=== PATIENT | male | born 1935 | race Caucasian/White ===

== ENCOUNTER 2018-09-06 09:20 | Inpatient (IN) | payer MEDICARE, OTHER ==
[~2018-09-06] VITALS: Ht 172.7 cm; Wt 75.1 kg
[2018-09-06] MEDS ORDERED: ENOXAPARIN 80 MG/0.8 ML SYG SC STA (09:32)
--- NOTE | 2018-09-06 09:52 | ERD ---
ER Documentation Chief Complaint Chief Complaint CP TODAY HPI This is an 83-year-old male who developed chest pain at 5:00 in the morning today with heart racing. He has no history of atrial fibrillation. His pain is substernal without radiation he feels just mild shortness of breath. No dizziness no syncope no diaphoresis. The patient takes metoprolol for hypertension. Currently his pain is minimal ROS All systems reviewed and are negative except as per history of present illness. Medications Home Meds Reported Medications Mag Hydrox/Al Hydrox/Simeth (Mi Acid Liquid) 355 Ml Oral.susp, 5 ML PO TID 09/06/18 Rotigotine (NEUPRO) 1 Each Patch.td24, 1 EACH TD DAILY 2MG/24HR 09/06/18 Famotidine* (Famotidine*) 20 Mg Tablet, 20 MG PO BID, #60 TAB 09/06/18 Trazodone Hcl* (Trazodone Hcl*) 50 Mg Tablet, 50 MG PO QHS, #30 TAB 09/06/18 Clopidogrel Bisulfate (Clopidogrel) 75 Mg Tablet, 75 MG PO DAILY, #30 TAB 09/06/18 Polyethylene Glycol* (Miralax*) 17 Gm Powd.pack, 17 GM PO DAILY, #30 PACKET 09/06/18 Metoprolol Succinate* (Toprol XL*) 25 Mg Tab.sr.24h, 25 MG PO DAILY, #30 TAB 09/06/18 Baclofen* (Baclofen*) 10 Mg Tablet, 10 MG PO DAILY, TAB 09/06/18 Tamsulosin Hcl* (Flomax*) 0.4 Mg Cap.er.24h, 0.4 MG PO DAILY, CAP 09/06/18 Carbidopa/Levodopa (Carbidopa-Levodopa 25-100 Tab) 1 Each Tablet, 1 EACH PO BID, TAB 09/06/18 Aspirin (Low Dose Aspirin) 81 Mg Tablet.dr, 81 MG PO DAILY, #30 TAB 09/06/18 Linaclotide (LINZESS) 145 Mcg Capsule, 145 MCG PO DAILY, #30 CAP 09/06/18 Atorvastatin* (Atorvastatin*) 40 Mg Tablet, 40 MG PO QHS, #30 TAB 09/06/18 Esomeprazole Mag Trihydrate (Nexium) 40 Mg Capsule.dr, 40 MG PO DAILY, #30 CAP 09/06/18 Allergies Allergies: Coded Allergies: No Known Allergy (Unverified , 4/21/19) PMhx/Soc Hx Alcohol Use: No Hx Substance Use: No Hx Tobacco Use: No FmHx Family History: No coronary disease Physical Exam Vitals Vital Signs Date Temp Pulse Resp B/P (MAP) Pulse Ox O2 O2 Flow FiO2 Time Delivery Rate 09/06/18 98.6 76 18 124/69 99 09:23 (87) Physical Exam Const: Well-developed, well-nourished Head: Atraumatic, normocephalic Eyes: Normal Conjunctiva, PERRLA, EOMI, normal sclera, no nystagmus ENT: Normal External Ears, Nose and Mouth, moist mucus membranes. Neck: Full range of motion. No meningismus, no lymphadenopathy. Resp: Clear to auscultation bilaterally, no wheezing, rhonchi, rales Cardio: Irregular rate and rhythm no murmurs, S1 S2 present] Abd: Soft, non tender x 4, non distended. Normal bowel sounds, no guarding or rebound, no pulsitile abdominal masses or bruits Skin: No petechiae or rashes, no ecchymosis , no maculopapular rash Back: No midline or flank tenderness Ext: No cyanosis, or edema, FROM x 4, normal inspection, neurovascularly intact x 4 Neur: Awake and alert, STR 5/5 x 4, sensation intact x 4, no focal findings, cerebellum intact Psych: Normal Mood and Affect Result Diagram: 09/06/1894009/06/18940 Results 24 hrs Laboratory Tests Test 09/06/18 09:41 White Blood Count 7.5 10^3/ul Red Blood Count 5.38 10^6/ul Hemoglobin 16.7 g/dl Hematocrit 52.0 % Mean Corpuscular Volume 96.7 fl Mean Corpuscular Hemoglobin 31.0 pg Mean Corpuscular Hemoglobin Concent 32.1 g/dl Red Cell Distribution Width 12.8 % Platelet Count 173 10^3/UL Mean Platelet Volume 9.9 fl Immature Granulocytes % 0.400 % Neutrophils % 64.0 % Lymphocytes % 27.9 % Monocytes % 6.8 % Eosinophils % 0.8 % Basophils % 0.1 % Nucleated Red Blood Cells % 0.0 /100WBC Immature Granulocytes # 0.030 10^3/ul Neutrophils # 4.8 10^3/ul Lymphocytes # 2.1 10^3/ul Monocytes # 0.5 10^3/ul Eosinophils # 0.1 10^3/ul Basophils # 0.0 10^3/ul Nucleated Red Blood Cells # 0.0 10^3/ul Prothrombin Time 12.5 Sec Prothrombin Time Ratio 1.0 INR International Normalized Ratio 0.92 Activated Partial Thromboplast Time 26.6 Sec Sodium Level 141 mmol/L Potassium Level 4.4 mmol/L Chloride Level 101 mmol/L Carbon Dioxide Level 31 mmol/L Anion Gap 9 Blood Urea Nitrogen 21 mg/dl Creatinine 0.84 mg/dl Est Glomerular Filtrat Rate mL/min mL/min Glucose Level 108 mg/dl Calcium Level 9.5 mg/dl Total Bilirubin 1.7 mg/dl Direct Bilirubin 0.00 mg/dl Indirect Bilirubin 1.7 mg/dl Aspartate Amino Transf (AST/SGOT) 25 IU/L Alanine Aminotransferase (ALT/SGPT) 39 IU/L Alkaline Phosphatase 89 IU/L Troponin I < 0.012 ng/ml Total Protein 7.8 g/dl Albumin 4.5 g/dl Globulin 3.30 g/dl Albumin/Globulin Ratio 1.36 Current Medications Medications Dose Sig/Angel Start Time Status Last (Trade) Ordered Route PRN Stop Time Admin Dose Reason Admin Enoxaparin 70 mg ONCE STAT 09/06/18 DC 09/06/18 Sodium SC 09:32 09:47 (Lovenox) 09/06/18 09:35 Diltiazem 20 mg ONCE ONCE 09/06/18 DC 09/06/18 HCl IV 10:00 09:46 (Cardizem Iv) 09/06/18 10:01 Diltiazem 125 ml @ [id number] IV 09/06/18 HCl 10 mls/hr 10:00 Procedures/MDM EKG: Rate/Rhythm: Atrial fibrillation with rapid ventricular response, right bundle branch block QRS, ST, QT: NORMAL [place], QRS, QT] Impression: A. fib with RVR MR #: [id number] DOS: 09/06/18931 Ordering MD: MACY FUNEZ DO Location: E/R Room/Bed: PROCEDURE: XR Chest. CLINICAL INDICATION: Chest pain TECHNIQUE: AP portable upright chest was obtained COMPARISON: None. FINDINGS: Unremarkable sternotomy and mediastinal surgical clips. Heart within normal limits size. No evidence of pulmonary vascular congestion acute lung consolidation pleural effusions and pneumothorax. The bones are osteopenic. IMPRESSION: No evidence of congestive heart failure or pneumonia. RPTAT:AAJJ Physician Eloisa Date Time Electronically viewed and signed by Conor Gold Physician on 09/06/2018 10:32 BM/ CC: MACY FUNEZ DO [id number] Patient received IV Cardizem bolus followed by IV Cardizem drip to maintain heart rate. Patient's chest pain is gone when his heart rate was controlled. We will admit the patient to the hospital for chest pain workup and new onset atrial fibrillation. Cardiac Admit MDM: Patient's symptoms are concerning for cardiac cause will require inpatient workup and continuous monitoring. Further w/u for ischemia, arrhythmia, PE or dissection will be deferred to the inpatient team.. Critical Care Time: 35 minutes Treatments/Evaluations: Close monitoring and treatment of unstable vital signs, cardiorespiratory, and neurologic status, while maintaining tight balance of fluid, respiratory, and cardiac interventions. This time includes discussing the case with the patient and the patient's family. This time does not include all procedures stated elsewhere in this record. This time also includes reviewing old records, labs and radiological studies. This time includes examining and re- examining the patient. Additionally, this time also includes arranging care with admitting and consulting physicians. Departure Diagnosis: Primary Impression: Atrial fibrillation with RVR Additional Impression: Chest pain Chest pain type: unspecified Qualified Codes: R07.9 - Chest pain, unspecified Condition: Stable MACY FUNEZ DO Sep 06, 2018 09:52
[2018-09-06] MEDS ORDERED: DILTIAZEM 25 MG INJ IV ONE (10:00)
[2018-09-06] MEDS ORDERED: DILTIAZEM-D5W 125MG/125ML DRIP 125 ML IV SCH (10:00)
[2018-09-06] MEDS ORDERED: ATOR40TA68 PO (10:29)
[2018-09-06] MEDS ORDERED: ESOM40CA PO (10:29)
[2018-09-06] MEDS ORDERED: LINA145C PO (10:29)
[2018-09-06] MEDS ORDERED: ASPI81TA52 PO (10:30)
[2018-09-06] MEDS ORDERED: CARB1TAB34 PO (10:31)
[2018-09-06] MEDS ORDERED: TAMS-14 PO (10:31)
[2018-09-06] MEDS ORDERED: BACL10TA PO (10:31)
[2018-09-06] MEDS ORDERED: POLY17PO6 PO (10:32)
[2018-09-06] MEDS ORDERED: CLOP75TA27 PO (10:32)
[2018-09-06] MEDS ORDERED: METO-335 PO (10:32)
[2018-09-06] MEDS ORDERED: TRAZ-111 PO (10:33)
[2018-09-06] MEDS ORDERED: FAMO20TA18 PO (10:34)
[2018-09-06] MEDS ORDERED: ROTI1PAT7 TD (10:37)
[2018-09-06] MEDS ORDERED: MAG355OR36 PO (10:38)
[2018-09-06] MEDS ORDERED: ONDANSETRON 4 MG INJ IV PRN (11:00)
[2018-09-06] MEDS ORDERED: ACETAMINOPHEN 325 MG TAB PO PRN (11:00)
[2018-09-06] MEDS ORDERED: ACETAMINOPHEN 325 MG TAB PO ONE (12:00)
[2018-09-06] MEDS ORDERED: OXYCODONE/ACETAMINOPHEN (5/325) TAB PO PRN (12:30)
[2018-09-06] MEDS ORDERED: NACL 0.9% 3 ML SYG IV SCH (12:30)
[2018-09-06] MEDS ORDERED: METOPROLOL 5 MG INJ IV ONE (13:00)
[2018-09-06] MEDS ORDERED: METOPROLOL 5 MG INJ IV PRN (13:00)
[2018-09-06] MEDS: METOPROLOL 25 MG TAB PO ONE ×2 (13:44→17:39)
--- NOTE | 2018-09-06 16:01 | HP ---
Date/Time of Note Date/Time of Note DATE: 09/06/18 TIME: 15:55 Assessment/Plan VTE Prophylaxis SCD applied (from Nsg): Yes Pharmacological prophylaxis: heparin Lines/Catheters IV Catheter Type (from Nrsg): Peripheral IV Assessment/Plan Hospital Course This is an 83-year-old male with a history of coronary artery disease status p ost CABG, Parkinson's disease who presented with new onset atrial fibrillation with RVR now spontaneously converted back to sinus rhythm Atrial fibrillation: -Should be on anticoagulation. Will start a DOAC -Rate control with metoprolol. Taking 25 of Toprol at home I will increase this to 50 - TTE pending Coronary artery disease, -Stop aspirin given now will be on DOAC. Continue Plavix, statin Parkinsons: - Continue sinemet Can be discharged home likely tomorrow Result Diagram: 09/06/1841 09/06/18 0941 Results 24hrs Laboratory Tests Test 09/06/18 09:41 White Blood Count 7.5 # Red Blood Count 5.38 Hemoglobin 16.7 Hematocrit 52.0 Mean Corpuscular Volume 96.7 Mean Corpuscular Hemoglobin 31.0 Mean Corpuscular Hemoglobin Concent 32.1 Red Cell Distribution Width 12.8 Platelet Count 173 Mean Platelet Volume 9.9 Immature Granulocytes % 0.400 Neutrophils % 64.0 Lymphocytes % 27.9 Monocytes % 6.8 Eosinophils % 0.8 Basophils % 0.1 Nucleated Red Blood Cells % 0.0 Immature Granulocytes # 0.030 Neutrophils # 4.8 Lymphocytes # 2.1 Monocytes # 0.5 Eosinophils # 0.1 Basophils # 0.0 Nucleated Red Blood Cells # 0.0 Prothrombin Time 12.5 Prothrombin Time Ratio 1.0 INR International Normalized Ratio 0.92 Activated Partial Thromboplast Time 26.6 Sodium Level 141 Potassium Level 4.4 Chloride Level 101 Carbon Dioxide Level 31 Anion Gap 9 Blood Urea Nitrogen 21 H Creatinine 0.84 Est Glomerular Filtrat Rate mL/min Glucose Level 108 Calcium Level 9.5 Total Bilirubin 1.7 H Direct Bilirubin 0.00 Indirect Bilirubin 1.7 H Aspartate Amino Transf (AST/SGOT) 25 Alanine Aminotransferase (ALT/SGPT) 39 Alkaline Phosphatase 89 Troponin I < 0.012 Total Protein 7.8 Albumin 4.5 Globulin 3.30 H Albumin/Globulin Ratio 1.36 HPI/ROS Admit Date/Time Admit Date/Time Hx of Present Illness This is an 83-year-old male with a history of CAD status post what I think is CABG, as well as Parkinson's disease who presents with palpitations and chest pressure that started this morning. Patient is in his usual state of health until this a.m. when he felt the acute onset of racing heartbeat with chest tightness. Symptoms continued and came to the ER where he was found to be in the rapid atrial fibrillation. He was started on a diltiazem drip became hypotensive and this was stopped. The patient then spontaneously converted to normal sinus rhythm and is currently comfortable. I do not believe he has a history of atrial fibrillation prior to this ROS Constitutional: no complaints, improved Eyes: no complaints ENT: no complaints Respiratory: no complaints Cardiovascular: no complaints Gastrointestinal: no complaints Genitourinary: no complaints Musculoskeletal: no complaints Skin: no complaints Neurologic: no complaints Endocrine: no complaints Lymphatic: no complaints Psychological: no complaints, nl mood/affect Immunologic: no complaints PMH/Family/Social Past Medical History Medical History: coronary artery disease Medications Current Medications Ondansetron HCl (Zofran Inj) 4 mg ER BRIDGE PRN IV NAUSEA/VOMITING; Start 09/06/18 at 11:00; Stop 09/07/18 at 10:59 Acetaminophen (Tylenol Tab) 650 mg ER BRIDGE PRN PO .MILD PAIN 1-3 OR TEMP; Start 09/06/18 at 11:00; Stop 09/07/18 at 10:59 IV Flush (NS 3 ml) 3 ml PER PROTOCOL IV ; Start 09/06/18 at 12:30 Oxycodone/ Acetaminophen (Percocet (5/ 325)) 1 tab Q6H PRN PO .MOD PAIN 4-6; Start 09/06/18 at 12:30 Aspirin (Halfprin) 81 mg DAILY PO ; Start 09/07/18 at 09:00 Atorvastatin Calcium (Lipitor) 40 mg QHS PO ; Start 09/06/18 at 21:00 Baclofen (Lioresal) 10 mg DAILY PO ; Start 09/07/18 at 09:00 Clopidogrel Bisulfate (plaVIX) 75 mg DAILY PO ; Start 09/07/18 at 09:00 Famotidine (Pepcid) 20 mg BID PO ; Start 09/06/18 at 21:00 Al Hydrox/Mg Hydrox/Simethicone (Mag-Al Plus) 5 ml TID PO ; Start 09/06/18 at 13:00 Polyethylene Glycol (Miralax) 17 gm DAILY PO ; Start 09/07/18 at 09:00 Tamsulosin HCl (Flomax) 0.4 mg DAILY PO ; Start 09/07/18 at 09:00 Trazodone HCl (Desyrel) 50 mg QHS PO ; Start 09/06/18 at 21:00 Miscellaneous Information 1 each DAILY TD ; Start 09/07/18 at 09:00; Status UNV Carbidopa/Levodopa (Sinemet (25/ 100)) 1 tab TID PO ; Start 09/06/18 at 13:00 Metoprolol Tartrate (Lopressor) 5 mg Q6H PRN IV HR > 110; Start 09/06/18 at 13:00 Miscellaneous Information (*Order Clarification Bulletin) MEDICATION REQUIRES CLARIFICATION:RO... Q8H XX ; Start 09/06/18 at 14:00 Coded Allergies: No Known Allergy (Unverified , 09/06/18) Past Surgical History Past Surgical Hx: coronary bypass surgery Family History Significant Family History: no pertinent family hx Social History Alcohol Use: none Smoking Status: Never smoker Drug Use: none Exam/Review of Systems Vital Signs Vitals Vital Signs Date Temp Pulse Resp B/P (MAP) Pulse Ox O2 O2 Flow FiO2 Time Delivery Rate 09/06/18 98.6 128 23 112/73 100 Nasal 2.0 11:00 (86) Cannula Exam Exam Appears comfortable Obvious tremor of head and bilateral upper extremities at rest consistent with Parkinson's Now in regular rate and rhythm Lungs clear breathing comfortably Abdomen soft nontender No edema WILLIAM COLLAZO MD Sep 06, 2018 16:01
[2018-09-06] MEDS: CARBIDOPA/LEVODOPA (25/100) TAB PO SCH ×2 (17:36→20:41)
[2018-09-06] MEDS: AL HYDROX/MG HYDROX/SIMETH 30 ML CUP PO SCH ×2 (17:39→20:47)
--- NOTE | 2018-09-06 17:40 | RADRPT ---
Echocardiogram Report Patient Name: JES PHAMPatient ID: [id number] : 1935 (83y 3m)Study Date: 09/06/2018 1:26:45 PM Gender: MAccession #: [id number] Tech: JAVON Donnelly NIURKA Location: E/R Ref.Physician: WILLIAM COLLAZO Height(Cm): BSA: Weight(Kg): Quality: AdequateAccount #: Procedures: Echocardiographic Report: Transthoracic echocardiogram with complete 2D, M-Mode, and doppler examination. Indications: Atrial Fibrillation. Measurements: 2D/M Mode Doppler Measurement Value Normal Range Measurement Value Normal Range LVIDd 2D 3.8 [ 4.2 - 5.8 ] cm AV Peak Luis A 0.9 [ 100.0 - 170.0 ] cm/sec LVIDs 2D 2.7 [ 2.5 - 4.0 ] cm AV Peak PG 4.0 [ 2.0 - 9.0 ] mmHg LVPWd 2D 1.0 [ 0.6 - 1.0 ] cm LVOT Peak Luis A 0.7 [ 70.0 - 110.0 ] cm/sec IVSd 2D 0.9 [ 0.6 - 1.0 ] cm LVOT Peak PG 2.0 [ 2.0 - 6.0 ] mmHg IVS/LVPW 2D 0.8 ratio MV E Peak Luis A 0.5 [ 60.0 - 130.0 ] cm/sec AoR Diam 2D 3.0 [ 2.6 - 3.4 ] cm MV A Peak Luis A 0.6 [ 100.0 - 120.0 ] cm/sec LA/Ao 2D 1 ratio MV E/A 0.8 [ 0.8 - 1.5 ] ratio LA Dimen 2D 3.5 [ 3.0 - 4.0 ] cm MV Decel Time 282 [ 104 - 258 ] msec Lat E` Luis A 0.1 [ 10.0 - 15.0 ] cm/sec Med E` Luis A 0.1 cm/sec MV E/A 0.8 [ 0.8 - 1.5 ] ratio Findings: Left Ventricle: Normal left ventricular systolic function. Normal left ventricular cavity size. Normal left ventricular wall thickness. Ejection fraction is visually estimated at 60 %. Tissue Doppler/Mitral Doppler indices are consistent with impaired relaxation (Stage I diastolic dysfunction). Right Ventricle: Normal right ventricular size. Normal right ventricular systolic function. Left Atrium: The left atrium is normal in size. Right Atrium: The right atrium is normal in size. Atrial Septum: Normal atrial septum. Ventricular septum: Normal/intact ventricular septum. Mitral Valve: Normal appearance of the mitral valve. Trace mitral regurgitation. Aortic Valve: Normal appearance of the aortic valve. Tricuspid Valve: Normal appearance of the tricuspid valve. Unable to obtain RVSP due to minimal presence of tricuspid regurgitation. No evidence of tricuspid regurgitation. Pulmonic Valve: Pulmonic valve not well visualized. No evidence of pulmonic regurgitation. Pericardium: Normal pericardium with no significant pericardial effusion. Aorta: Normal aortic root. IVC: The IVC is not well visualized. Pulmonary Artery: Not well visualized. Conclusions: Fair quality study, limited by lack of subcostal images. Normal left ventricular systolic function. Grade 1 diastolic dysfunction. Trace mitral regurgitation. Electronically Signed By: Radha Salazar 2018-09-06 17:39:26 PDT
[2018-09-06 18:37] VITALS: PULSE 64
[2018-09-06 18:41] VITALS: BP 137/79; PULSE 82
[2018-09-06 19:49] VITALS: Ht 172.7 cm; Wt 75.1 kg
[2018-09-06 20:00] VITALS: BP 113/62; PULSE 56; PULSE 60; RESP 20
[2018-09-06] MEDS: FAMOTIDINE 20 MG TAB PO SCH (20:41)
[2018-09-06] MEDS ORDERED: traZODone 50 MG TAB PO SCH (21:00)
[2018-09-06] MEDS ORDERED: ATORVASTATIN 40 MG TAB PO SCH (21:00)
[2018-09-06] MEDS ORDERED: KETOROLAC 15 MG INJ IV STA (21:54)
[2018-09-06] MEDS ORDERED: NITROGLYCERIN (SL) 0.4 MG TAB SL ONE (22:00)
[2018-09-07] VITALS: BP 116/58; PULSE 52; PULSE 56; RESP 18
[2018-09-07 04:00] VITALS: BP 105/59; PULSE 54; PULSE 59; RESP 16
[2018-09-07 07:43] VITALS: BP 107/58; PULSE 100; RESP 20
[2018-09-07 08:01] VITALS: PULSE 67
[2018-09-07] MEDS: FAMOTIDINE 20 MG TAB PO SCH (08:58)
[2018-09-07] MEDS: CARBIDOPA/LEVODOPA (25/100) TAB PO SCH ×2 (08:58→13:40)
--- NOTE | 2018-09-07 08:59 | CONS ---
Assessment/Plan Assessment/Plan Hospital Course (Demo Recall) 83 yo with newly dx paroxysmal afib, now maintaining NSR. Impression: Paroxysmal afib CAD s/p cabg, pci Parkinson's disease Recommendations: Stop asa and clopidogrel, start Eliquis 5 mg bid (age over 80 but cr is under 1.5 and weight is 75 kg) Increase metoprolol succinate from home dose 25 mg up to 50 mg Continue other home meds Follow up with Dr. Ari Masterson, who I have made aware of the patient's admission Consultation Date/Type/Reason Admit Date/Time Date of Consultation: Sep 07, 2018 Type of Consult Cardiology Reason for Consultation afib Requesting Provider: WILLIAM COLLAZO MD Date/Time of Note DATE: 09/07/18 TIME: 08:54 Hx of Present Illness 83 yo with CAD, h/o CABG 2006, h/o PCI most recently about 3 years ago, follows with Dr. Ari Masterson, presented to ED with persistent chest pain. Patient found to be in rapid afib, received iv diltiazem and converted to NSR. At present he is in NSR and feels well. He states that at baseline he is active, does exercises, including a stationary bicycle, and going to a center. He has had no falls. History obtained with assistance of phone medical or surgical instrument maker who spoke farsi. Constitutional: no complaints Eyes: no complaints ENT: no complaints Respiratory: no complaints Cardiovascular: chest pain Gastrointestinal: no complaints Genitourinary: no complaints Musculoskeletal: no complaints Skin: no complaints Neurologic: other (tremor) Endocrine: no complaints Lymphatic: no complaints Psychological: no complaints Immunologic: no complaints Past Medical History Medical History: coronary artery disease, other (parkinson's) Home Meds Reported Medications Mag Hydrox/Al Hydrox/Simeth (Mi Acid Liquid) 355 Ml Oral.susp, 5 ML PO TID 09/06/18 Rotigotine (NEUPRO) 1 Each Patch.td24, 1 EACH TD DAILY 2MG/24HR 09/06/18 Famotidine* (Famotidine*) 20 Mg Tablet, 20 MG PO BID, #60 TAB 09/06/18 Trazodone Hcl* (Trazodone Hcl*) 50 Mg Tablet, 50 MG PO QHS, #30 TAB 09/06/18 Clopidogrel Bisulfate (Clopidogrel) 75 Mg Tablet, 75 MG PO DAILY, #30 TAB 09/06/18 Polyethylene Glycol* (Miralax*) 17 Gm Powd.pack, 17 GM PO DAILY, #30 PACKET 09/06/18 Metoprolol Succinate* (Toprol XL*) 25 Mg Tab.sr.24h, 25 MG PO DAILY, #30 TAB 09/06/18 Baclofen* (Baclofen*) 10 Mg Tablet, 10 MG PO DAILY, TAB 09/06/18 Tamsulosin Hcl* (Flomax*) 0.4 Mg Cap.er.24h, 0.4 MG PO DAILY, CAP 09/06/18 Carbidopa/Levodopa (Carbidopa-Levodopa 25-100 Tab) 1 Each Tablet, 1 EACH PO BID, TAB 09/06/18 Aspirin (Low Dose Aspirin) 81 Mg Tablet.dr, 81 MG PO DAILY, #30 TAB 09/06/18 Linaclotide (LINZESS) 145 Mcg Capsule, 145 MCG PO DAILY, #30 CAP 09/06/18 Atorvastatin* (Atorvastatin*) 40 Mg Tablet, 40 MG PO QHS, #30 TAB 09/06/18 Esomeprazole Mag Trihydrate (Nexium) 40 Mg Capsule.dr, 40 MG PO DAILY, #30 CAP 09/06/18 Medications Current Medications Ondansetron HCl (Zofran Inj) 4 mg ER BRIDGE PRN IV NAUSEA/VOMITING; Start 09/06/18 at 11:00; Stop 09/07/18 at 10:59 Acetaminophen (Tylenol Tab) 650 mg ER BRIDGE PRN PO .MILD PAIN 1-3 OR TEMP; Start 09/06/18 at 11:00; Stop 09/07/18 at 10:59 IV Flush (NS 3 ml) 3 ml PER PROTOCOL IV ; Start 09/06/18 at 12:30 Oxycodone/ Acetaminophen (Percocet (5/ 325)) 1 tab Q6H PRN PO .MOD PAIN 4-6 Last administered on 09/06/18at 20:42; Admin Dose 1 TAB; Start 09/06/18 at 12:30 Aspirin (Halfprin) 81 mg DAILY PO ; Start 09/07/18 at 09:00 Atorvastatin Calcium (Lipitor) 40 mg QHS PO Last administered on 09/06/18at 20:41; Admin Dose 40 MG; Start 09/06/18 at 21:00 Baclofen (Lioresal) 10 mg DAILY PO ; Start 09/07/18 at 09:00 Clopidogrel Bisulfate (plaVIX) 75 mg DAILY PO ; Start 09/07/18 at 09:00 Famotidine (Pepcid) 20 mg BID PO Last administered on 09/06/18at 20:41; Admin Dose 20 MG; Start 09/06/18 at 21:00 Al Hydrox/Mg Hydrox/Simethicone (Mag-Al Plus) 5 ml TID PO Last administered on 09/06/18at 20:47; Admin Dose 5 ML; Start 09/06/18 at 13:00 Polyethylene Glycol (Miralax) 17 gm DAILY PO ; Start 09/07/18 at 09:00 Tamsulosin HCl (Flomax) 0.4 mg DAILY PO ; Start 09/07/18 at 09:00 Trazodone HCl (Desyrel) 50 mg QHS PO Last administered on 09/06/18at 20:41; Admin Dose 50 MG; Start 09/06/18 at 21:00 Miscellaneous Information 1 each DAILY TD ; Start 09/07/18 at 09:00; Status UNV Carbidopa/Levodopa (Sinemet (25/ 100)) 1 tab TID PO Last administered on 09/06/18at 20:41; Admin Dose 1 TAB; Start 09/06/18 at 13:00 Metoprolol Tartrate (Lopressor) 5 mg Q6H PRN IV HR > 110; Start 09/06/18 at 13:00 Miscellaneous Information (*Order Clarification Bulletin) MEDICATION REQUIRES CLARIFICATION:RO... Q8H XX ; Start 09/06/18 at 14:00 Metoprolol Succinate (Toprol Xl) 50 mg DAILY PO ; Start 09/07/18 at 09:00 Allergies: Coded Allergies: No Known Allergy (Unverified , 09/06/18) Past Surgical History Past Surgical Hx: coronary bypass surgery Family History Significant Family History: no pertinent family hx Social History Alcohol Use: none Smoking Status: Former smoker Drug Use: none Exam/Review of Systems Vital Signs Vitals Vital Signs Date Temp Pulse Resp B/P (MAP) Pulse Ox O2 O2 Flow FiO2 Time Delivery Rate 09/07/18 98.0 100 20 107/58 97 07:43 (74) 09/06/18 Nasal 2.0 20:15 Cannula Intake and Output 09/06/18 09/06/18 09/07/18 1515:00 23:00 07:00 IntakeIntake Total 600 ml OutputOutput Total 700 ml BalanceBalance -100 ml Exam Constitutional: alert, oriented, well developed Psych: nl mood/affect Head: normocephalic, atraumatic Eyes: nl conjunctiva, EOMI, nl lids, nl sclera ENMT: nl external ears & nose, nl lips & teeth, nl nasal mucosa & septum Neck: supple; No jvd, No bruits Respiratory: clear to auscultation, normal air movement Cardiovascular: regular rate and rhythm, nl pulses; No murmurs/extra sounds Gastrointestinal: soft, nl liver, spleen, non-tender Musculoskeletal: nl extremities to inspection Extremities: normal pulses; No edema Neurological: nl mental status, nl speech, other (resting tremor of both arms and head) Skin: nl turgor; No rash or lesions Labs Result Diagram: 09/07/1852209/07/18521 Results 24hrs Laboratory Tests Test 09/06/18 09:41 09/06/18 22:20 09/07/18 00:25 09/07/18 05:22 White Blood Count 7.5 # Red Blood Count 5.38 Hemoglobin 16.7 Hematocrit 52.0 Mean Corpuscular 96.7 Volume Mean Corpuscular 31.0 Hemoglobin Mean Corpuscular 32.1 Hemoglobin Concent Red Cell 12.8 Distribution Width Platelet Count 173 Mean Platelet Volume 9.9 Immature 0.400 Granulocytes % Neutrophils % 64.0 Lymphocytes % 27.9 Monocytes % 6.8 Eosinophils % 0.8 Basophils % 0.1 Nucleated Red Blood 0.0 Cells % Immature 0.030 Granulocytes # Neutrophils # 4.8 Lymphocytes # 2.1 Monocytes # 0.5 Eosinophils # 0.1 Basophils # 0.0 Nucleated Red Blood 0.0 Cells # Prothrombin Time 12.5 Prothrombin Time 1.0 Ratio INR International 0.92 Normalized Ratio Activated 26.6 Partial Thromboplast Time Sodium Level 141 141 Potassium Level 4.4 4.2 Chloride Level 101 109 Carbon Dioxide Level 31 28 Anion Gap 9 4 L Blood Urea Nitrogen 21 H 16 Creatinine 0.84 0.69 Est Glomerular Filtrat Rate mL/min Glucose Level 108 79 Calcium Level 9.5 9.0 Total Bilirubin 1.7 H 2.2 H Direct Bilirubin 0.00 0.00 Indirect Bilirubin 1.7 H 2.2 H Aspartate Amino 25 19 Transf (AST/SGOT) Alanine 39 19 Aminotransferase (AL T/SGPT) Alkaline Phosphatase 89 65 Troponin I < 0.012 0.032 0.025 Total Protein 7.8 6.4 # Albumin 4.5 3.4 # Globulin 3.30 H 3.00 Albumin/Globulin 1.36 1.13 Ratio Creatine Kinase 86 80 Creatine Kinase 2.7 2.6 Index Creatinine Kinase MB 2.33 2.04 (Mass) Test 09/07/18 05:23 White Blood Count 6.9 Red Blood Count 4.52 L Hemoglobin 14.2 Hematocrit 44.9 Mean Corpuscular 99.3 Volume Mean Corpuscular 31.4 Hemoglobin Mean Corpuscular 31.6 L Hemoglobin Concent Red Cell 12.8 Distribution Width Platelet Count 154 Mean Platelet Volume 10.4 Immature 0.300 Granulocytes % Neutrophils % 51.9 Lymphocytes % 38.3 Monocytes % 7.9 Eosinophils % 1.5 Basophils % 0.1 Nucleated Red Blood 0.0 Cells % Immature 0.020 Granulocytes # Neutrophils # 3.6 Lymphocytes # 2.6 Monocytes # 0.5 Eosinophils # 0.1 Basophils # 0.0 Nucleated Red Blood 0.0 Cells # Imaging Imaging Initial ekg demonstrates afib with RVR, rbbb, 144 bpm, left posterior fascicular block At present, telemetry is NSR Medications Medications Current Medications Ondansetron HCl (Zofran Inj) 4 mg ER BRIDGE PRN IV NAUSEA/VOMITING; Start 09/06/18 at 11:00; Stop 09/07/18 at 10:59 Acetaminophen (Tylenol Tab) 650 mg ER BRIDGE PRN PO .MILD PAIN 1-3 OR TEMP; Start 09/06/18 at 11:00; Stop 09/07/18 at 10:59 IV Flush (NS 3 ml) 3 ml PER PROTOCOL IV ; Start 09/06/18 at 12:30 Oxycodone/ Acetaminophen (Percocet (5/ 325)) 1 tab Q6H PRN PO .MOD PAIN 4-6 Last administered on 09/06/18at 20:42; Admin Dose 1 TAB; Start 09/06/18 at 12:30 Aspirin (Halfprin) 81 mg DAILY PO ; Start 09/07/18 at 09:00 Atorvastatin Calcium (Lipitor) 40 mg QHS PO Last administered on 09/06/18at 20:41; Admin Dose 40 MG; Start 09/06/18 at 21:00 Baclofen (Lioresal) 10 mg DAILY PO ; Start 09/07/18 at 09:00 Clopidogrel Bisulfate (plaVIX) 75 mg DAILY PO ; Start 09/07/18 at 09:00 Famotidine (Pepcid) 20 mg BID PO Last administered on 09/06/18at 20:41; Admin Dose 20 MG; Start 09/06/18 at 21:00 Al Hydrox/Mg Hydrox/Simethicone (Mag-Al Plus) 5 ml TID PO Last administered on 09/06/18at 20:47; Admin Dose 5 ML; Start 09/06/18 at 13:00 Polyethylene Glycol (Miralax) 17 gm DAILY PO ; Start 09/07/18 at 09:00 Tamsulosin HCl (Flomax) 0.4 mg DAILY PO ; Start 09/07/18 at 09:00 Trazodone HCl (Desyrel) 50 mg QHS PO Last administered on 09/06/18at 20:41; Admi n Dose 50 MG; Start 09/06/18 at 21:00 Miscellaneous Information 1 each DAILY TD ; Start 09/07/18 at 09:00; Status UNV Carbidopa/Levodopa (Sinemet (25/ 100)) 1 tab TID PO Last administered on 09/06/18at 20:41; Admin Dose 1 TAB; Start 09/06/18 at 13:00 Metoprolol Tartrate (Lopressor) 5 mg Q6H PRN IV HR > 110; Start 09/06/18 at 13:00 Miscellaneous Information (*Order Clarification Bulletin) MEDICATION REQUIRES CLARIFICATION:RO... Q8H XX ; Start 09/06/18 at 14:00 Metoprolol Succinate (Toprol Xl) 50 mg DAILY PO ; Start 09/07/18 at 09:00 BELKIS GALLEGOS Sep 07, 2018 08:59
[2018-09-07] MEDS ORDERED: BACLOFEN 10 MG TAB PO SCH (09:00)
[2018-09-07] MEDS ORDERED: TAMSULOSIN (SR) 0.4 MG CAP PO SCH (09:00)
[2018-09-07] MEDS ORDERED: METOPROLOL (XL) 50 MG TAB PO SCH (09:00)
[2018-09-07] MEDS ORDERED: POLYETHYLENE GLYCOL 17 GM PACKET PO SCH (09:00)
[2018-09-07] MEDS ORDERED: ROTIGOTINE TD SCH (09:00)
[2018-09-07] MEDS ORDERED: ASPIRIN (EC) 81 MG TAB PO SCH (09:00)
[2018-09-07] MEDS ORDERED: APIXABAN 5 MG TABLET PO SCH (09:00)
[2018-09-07] MEDS ORDERED: CLOPIDOGREL 75 MG TAB PO SCH (09:00)
[2018-09-07] MEDS: AL HYDROX/MG HYDROX/SIMETH 30 ML CUP PO SCH ×2 (09:02→13:41)
[2018-09-07] MEDS ORDERED: APIX5TAB PO (10:50)
[2018-09-07] MEDS ORDERED: METO-319 PO (10:50)
--- NOTE | 2018-09-07 10:51 | PDOCDIS ---
Discharge Instructions CONDITION [id number] Patient Condition: [id number] Good HOME CARE INSTRUCTIONS: [id number] Diet Instructions: [id number] Regular ACTIVITY: [id number] Activity Restrictions: [id number] No Restrictions FOLLOW UP/APPOINTMENTS Follow-up Plan FOLLOW UP WITH YOUR PCP AND SENSORY SCIENTIST IN 1-2 WEEKS NORBERTO AL Sep 07, 2018 10:51
[2018-09-07 12:01] VITALS: PULSE 59
[2018-09-07 12:02] VITALS: BP 110/57; PULSE 99; RESP 18
--- NOTE | 2018-09-07 16:03 | DS ---
Date/Time of Note Date/Time of Note DATE: 09/07/18 TIME: 16:00 Discharge Summary Admission/Discharge Info Admit Date/Time Sep 06, 2018 at 10:42 Discharge Date/Time Sep 07, 2018 at 14:50 Discharge Diagnosis Paroxysmal afib-now in sinus rhythm DC with Eliquis and metoprolol dose has been increased Home aspirin and Plavix has been discontinued Cardiology consultation appreciated CAD s/p cabg, pci Patient will now be on Eliquis and will be continued on a statin, aspirin and Plavix has been discontinued Parkinson's disease Continue home meds Patient Condition: Good Hospital Course Patient is an 83-year-old male with a history of Parkinson's disease, coronary disease and paroxysmal A. fib who presents with A. fib with RVR. Patient was seen by cardiology, 2D echo showed preserved EF, patient did convert to sinus rhythm and was clear for DC per cardiology. Recommendation was for patient to be discharged with Eliquis and increased dose of Toprol XL, home aspirin and Plavix were discontinued. On day of discharge patient's vitals, labs and physical exam are stable. Home Meds Active Scripts Apixaban* (Eliquis*) 5 Mg Tablet, 5 MG PO BID, #60 TAB 1 Refill Prov:NORBERTO AL 09/07/18 Metoprolol Succinate* (Toprol XL*) 50 Mg Tab.er.24h, 50 MG PO DAILY, #60 TAB Prov:SERVANDONORBERTO 09/07/18 Reported Medications Mag Hydrox/Al Hydrox/Simeth (Mi Acid Liquid) 355 Ml Oral.susp, 5 ML PO TID 09/06/18 Rotigotine (NEUPRO) 1 Each Patch.td24, 1 EACH TD DAILY 2MG/24HR 09/06/18 Famotidine* (Famotidine*) 20 Mg Tablet, 20 MG PO BID, #60 TAB 09/06/18 Trazodone Hcl* (Trazodone Hcl*) 50 Mg Tablet, 50 MG PO QHS, #30 TAB 09/06/18 Polyethylene Glycol* (Miralax*) 17 Gm Powd.pack, 17 GM PO DAILY, #30 PACKET 09/06/18 Baclofen* (Baclofen*) 10 Mg Tablet, 10 MG PO DAILY, TAB 09/06/18 Tamsulosin Hcl* (Flomax*) 0.4 Mg Cap.er.24h, 0.4 MG PO DAILY, CAP 09/06/18 Carbidopa/Levodopa (Carbidopa-Levodopa 25-100 Tab) 1 Each Tablet, 1 EACH PO BID, TAB 09/06/18 Linaclotide (LINZESS) 145 Mcg Capsule, 145 MCG PO DAILY, #30 CAP 09/06/18 Atorvastatin* (Atorvastatin*) 40 Mg Tablet, 40 MG PO QHS, #30 TAB 09/06/18 Esomeprazole Mag Trihydrate (Nexium) 40 Mg Capsule.dr, 40 MG PO DAILY, #30 CAP 09/06/18 Discontinued Reported Medications Clopidogrel Bisulfate (Clopidogrel) 75 Mg Tablet, 75 MG PO DAILY, #30 TAB 09/06/18 Metoprolol Succinate* (Toprol XL*) 25 Mg Tab.sr.24h, 25 MG PO DAILY, #30 TAB 09/06/18 Aspirin (Low Dose Aspirin) 81 Mg Tablet.dr, 81 MG PO DAILY, #30 TAB 09/06/18 Follow-up Plan FOLLOW UP WITH YOUR PCP AND BUSINESS APPLICATIONS ANALYST IN 1-2 WEEKS Primary Care Provider Not On Staff Doctor Time spent on discharge: > 30 minutes NORBERTO AL Sep 07, 2018 16:03
== END 2018-09-07 14:50 | disposition home or self-care (01) | DRG 310 ==
LOC: E/R 09:20 → TEL 10:42 → SUATTDRO 12:11
PROVIDERS: ADMIT Internal Medicine; ATTEND Internal Medicine
DX: I48.0 Paroxysmal atrial fibrillation (principal); I10 Essential (primary) hypertension; I25.10 Atherosclerotic heart disease of native coronary artery without angina pectoris; G20 Parkinson's disease; Z95.1 Presence of aortocoronary bypass graft; Z79.02 Long term (current) use of antithrombotics/antiplatelets; Z95.5 Presence of coronary angioplasty implant and graft; Z87.891 Personal history of nicotine dependence
CPT/HCPCS: 36415; 71045; 80053; 82550; 82553; 83036; 84484; 85025; 85610; 85730; 93005; 93306; 96372; 96374